=== PATIENT | male | born 1950 | race Caucasian/White ===

== ENCOUNTER → 2017-11-30 12:35 | Day surgery (SDC) | payer MEDICARE, OTHER ==
[~2017-11-30 12:35] MED LIST: Buffered Lidocaine 0.9% SYRIN* 5 ML/SYR SYRINGE INTRADERM ONE; Chlorhexidine MW 0.12% 473ML* STOCK BOTTLE * USE UNIT DOSE ONE; Dexamethasone IV* 4 MG/ML 1 ML (4 MG) ONE; Dexamethasone TAB* 4 MG ONE; Dexamethasone TAB* 4 MG PO ONE; DiMENhydriNATE IV* 50 MG/ML VIAL IV PUSH PRN; EPHEDrine (Pressors)* 50 MG/ML VIAL ONE; Famotidine IV* 10 MG/ML 2 ML (20 mg) IV ONE; Famotidine IV* 10 MG/ML 2 ML (20 mg) ONE; Flumazenil* 0.1 MG/ML 5 ML MDV ONE; Glycopyrrolate IV* 0.2 MG/ML 1 ML VIAL ONE; KETAMINE HCL* 50 MG/ML 10 ML VIAL ONE; Lidocain 1% EPI 1:100,000 * 30 ML MDV ONE; Lidocaine 2% PF * 5 ML VIAL ONE; Midazolam* 1 MG/ML 5 ML VIAL (5 MG) ONE; Morphine INJ* 2 MG/ML 1 ML CARPUJECT IV PRN; Naloxone* 0.4 MG/ML 1 ML VIAL IV PRN; Naloxone* 0.4 MG/ML 10 ML VIAL ONE; Ondansetron ODT TAB* 4 MG ONE; Ondansetron TAB* 4 MG PO ONE; PROCHLORPERAZINE INJ 5 MG/ML 2 ML VIAL IV PRN; Propofol* 10 MG/ML 20 ML BTL IV PUSH ONE; Succinylcholine* 20 MG/ML 10 ML VIAL ONE; fentaNYL* 50 MCG/ML 2 ML VIAL (100 MCG VIAL) IV PRN; fentaNYL* 50 MCG/ML 2 ML VIAL (100 MCG VIAL) ONE
[2017-11-30 15:27] VITALS: BP 132/73
--- NOTE | 2017-12-01 04:49 | OP ---
DATE OF OPERATION: 11/30/17 - SDS DATE OF : 52. SURGEON: Logan Rodrigez MD ANESTHESIA: General endotracheal anesthesia with laser-safe tube because I used a CO2 laser. PRE-OP DIAGNOSIS: Papilloma of the right oral cavity. POST-OP DIAGNOSIS: Papilloma of the right oral cavity. OPERATIVE PROCEDURE: Wide local excision of the right oral cavity buccal lesion. COMPLICATIONS: None. DISPOSITION: Good. SPECIMENS: Excision of the right intraoral buccal lesion. DESCRIPTION OF PROCEDURE: The patient was taken to the operating room, placed in the supine position on the operating room table. General anesthesia was induced. He was orotracheally intubated, turned and draped for the surgery. He had an exophytic mass involving the right buccal mucosa just superolateral to the alveolar ridge. I injected 1% lidocaine with 1:1000 epinephrine. Initially , I attempted to use CO2 laser to make the cuts, but it was not cutting properly. So, I used needle tip cautery, circumferentially demarcated the lesion, which was broadly based on the buccal mucosa and then undermined with the needle tip cautery taking this off of the underlying muscle. It was closed with a simple running 3-0 Chromic and then some chlorhexidine rinse was used to rinse out the area. The patient tolerated the procedure well, no complications , transferred to recovery room in stable condition. [id number] #: [id number] MTDD
== END | disposition home or self-care (01) ==
LOC: OR 12:35
PROVIDERS: ATTEND Otolaryngology
DX: D37.09 Neoplasm of uncertain behavior of other specified sites of the oral cavity (principal); K06.8 Other specified disorders of gingiva and edentulous alveolar ridge; Z85.810 Personal history of malignant neoplasm of tongue; Z85.818 Personal history of malignant neoplasm of other sites of lip, oral cavity, and pharynx; R13.12 Dysphagia, oropharyngeal phase; E78.00 Pure hypercholesterolemia, unspecified; E05.90 Thyrotoxicosis, unspecified without thyrotoxic crisis or storm; Z87.891 Personal history of nicotine dependence; E78.5 Hyperlipidemia, unspecified
CPT/HCPCS: 88305; A9270-GY; J0330; J1100; J2250; J2310; J2704; J3010; J8540